=== PATIENT | male | born 1995 | race Hispanic/Latino ===

== ENCOUNTER 2018-09-16 14:30 | Emergency (ER) | payer SELFPAY ==
[2018-09-16 14:33] VITALS: BP 128/74; PULSE 94; RESP 18; TEMP 36.1; O2SAT 98; BMI 32.8
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
[2018-09-16] MEDS: Naproxen 500 MG Tablet PO (15:13)
--- NOTE | 2018-09-16 15:15 | RAD_ITS ---
STUDY: X-RAY - LEFT KNEE REASON FOR EXAM: Male, 23 years old. TECHNIQUE: view(s) of the knee. COMPARISON: None. FINDINGS: Normal visualized distal femur. Normal visualized proximal tibia and fibula. Normal proximal tibiofibular articulation. Normal medial femorotibial compartment. Normal lateral femorotibial compartment. Normal patellofemoral articulation. The soft tissue structures are unremarkable. RAD/Knee 4 or More Views IMPRESSION: Normal x-ray examination of the knee. Electronically Signed: Ashtyn Espinoza, at 15:44 EDT Tel , Service support ,
--- NOTE | 2018-09-16 15:33 | ED.DEP ---
ED Disposition - Plan for ED Patient: Disposition: Home or Assisted Living Instructions: CONTUSION, Lower Extremity Prescriptions: Naproxen [Naprosyn] 500 mg PO BID PRN #20 tab Prescription Printed Referrals: Gabby Casillas DO [STAFF PHYSICIAN] -
[2018-09-16 15:48] VITALS: RESP 15
== END 2018-09-16 15:50 | disposition home or self-care (01) ==
LOC: ED 15:37
PROVIDERS: Emergency Provider Emergency Medicine
DX: S80.02XA Contusion of left knee, initial encounter (principal); V49.88XA Car occupant (driver) (passenger) injured in other specified transport accidents, initial encounter; Y93.89 Activity, other specified; Y92.9 Unspecified place or not applicable; Z72.0 Tobacco use
CPT/HCPCS: 73564; 99284

== ENCOUNTER 2018-12-01 08:48 | Emergency (ER) | payer SELFPAY ==
[2018-12-01 08:49] VITALS: BP 135/84; PULSE 75; RESP 16; TEMP 37; O2SAT 99; BMI 31.6
--- NOTE | 2018-12-01 09:07 | ED.VISSUMM ---
- ER Visit Summary Date of Service: 12/01/18 Chief Complaint: Rash History of Present Illness: The patient is a 23 M who presents with a rash that is been getting worse over the past 2 days. Patient denies any new exposures such as new foods, soaps, shampoos, laundry detergents, or fabric softeners. Patient states the rash is pruritic. Patient states the rash is over his chest and neck. Patient denies any shortness of breath. Patient denies any sore throat. Patient denies any difficulty swallowing. Physical Examination: Vital signs are stable. Patient is afebrile. Patient is in no acute distress. Oral mucosa is pink and moist. Oropharynx is clear. Airway is patent. Neck is supple. Trachea is midline. There is no JVD noted. Heart was regular rate and rhythm. Lungs are clear and equal bilaterally. Abdomen is soft and nontender. Cranial nerves II through XII are intact. There are no focal motor or sensory deficits noted. Skin is warm dry. There is erythematous patchy urticarial rash over the chest and neck. There are no vesicles or pustules. There are no petechia noted. There is no lesions in the mucous membranes. Emergency Department Course and Treatment: Patient was given a prescription for hydrocortisone cream. Patient was instructed to follow-up with his primary care physician in 5 to 7 days. Patient understood and was agreeable with the plan. All questions were answered. Disposition: Discharge home Impression: Urticaria This note was generated with [employer] dictation software. It may contain incorrect words, spelling, and punctuation that were not noted in review of the chart prior to signing ED Disposition - Plan for ED Patient: Disposition: Home or Assisted Living Diagnosis: Urticaria Prescriptions: Hydrocortisone 2.5% Crm [Hytone] 1 applic TOPICAL BID #30 gm Prescription Printed Referrals: Care Physician,No Primary [Primary Care Provider] - Rayo Leos MD [NON-STAFF] - 5-7 Days
== END 2018-12-01 09:54 | disposition home or self-care (01) ==
LOC: ED 09:22
PROVIDERS: Emergency Provider Emergency Medicine
DX: L50.9 Urticaria, unspecified (principal); E66.9 Obesity, unspecified; Z68.31 Body mass index [BMI] 31.0-31.9, adult; Z72.0 Tobacco use
CPT/HCPCS: 99282